=== PATIENT | male | born 1975 | race Caucasian/White ===

== ENCOUNTER 2016-06-26 11:20 | Day surgery (SDC) | payer MEDICARE, MEDICAID ==
[~2016-06-26 11:20] MED LIST: ACETAMINOPHEN 1000MG/100 ML PREMIX IV ONE
[2016-06-26] MEDS ORDERED: HYDROMORPHONE HCL 2 MG/ML VIAL IV ONE (14:00)
[2016-06-26] MEDS ORDERED: BUPIVACAINE 0.25% W/EPI MPF 30ML VIAL IVP ONE (14:00)
[2016-06-26] MEDS ORDERED: HYDROCODONE/APAP 5/325MG TABLET PO ONE (14:00)
[2016-06-26] MEDS ORDERED: ONDANSETRON HCL IV 4 MG/2 ML VIAL IVP ONE (15:34)
[2016-06-26] MEDS ORDERED: KETOROLAC 30 MG/ML VIAL IVP ONE (15:34)
[2016-06-26] MEDS ORDERED: NEOSTIGMINE 1 MG/1 ML,10ML VIAL IV ONE (15:34)
[2016-06-26] MEDS ORDERED: FENTANYL PF 100MCG/2ML VIAL IV ONE (15:34)
[2016-06-26] MEDS ORDERED: MIDAZOLAM HCL 2MG/2ML VIAL IV ONE (15:34)
[2016-06-26] MEDS ORDERED: GLYCOPYRROLATE 0.2 MG/ML ML IV ONE (15:34)
[2016-06-26] MEDS ORDERED: DEXAMETHASONE 4 MG/ML 1ML VIAL IVP ONE (15:34)
[2016-06-26] MEDS ORDERED: SUCCINYLCHOLINE 20 MG/ML 10ML IVP ONE (15:34)
[2016-06-26] MEDS ORDERED: PROPOFOL 10 MG/ML VIAL IV ONE (15:34)
[2016-06-26] MEDS ORDERED: ROCURONIUM BROMIDE 50MG/5ML VIAL IV ONE (15:34)
--- NOTE | 2016-06-27 16:09 | Operative Note ---
DATE OF SURGERY: 06/26/16 PREOPERATIVE DIAGNOSIS: CHRONIC CHOLECYSTITIS. POSTOPERATIVE DIAGNOSIS: CHRONIC CHOLECYSTITIS. OPERATION: LAPAROSCOPIC CHOLECYSTECTOMY. SURGEON: YRN CHASE D.O. INDICATIONS: The patient is a 40-year-old male who presented to the clinic. He had ongoing right subcostal postprandial pain. Ultrasound was done, which did reveal cholelithiasis with a fairly heavy . We did discuss cholecystectomy versus medical management, he desired surgical intervention. The risks include but not limited to; bleeding, infection, ductal injury, possible conversion to open, and postoperative bile leak and he understood this fully. Therefore, consent was signed and questions answered. PROCEDURE: He was taken to the Operating Room and placed in the supine position. General anesthesia was administered per the Anesthesia Department. The patient's abdomen was prepped and draped in the usual sterile fashion. The infraumbilical region was anesthetized with a total of 3 mL of 0.25% Sensorcaine with Epinephrine. A 2 cm infraumbilical incision was made. This was carried down to the anterior rectus fascia. This was incised. Abhishek clamps were placed on the fascial edges and brought up into the wound. Stay sutures of 0 Vicryl were placed. The posterior rectus sheath was identified and incised and the peritoneal cavity was entered bluntly. At this time, a 10 mm blunt Nilda port was placed and adequate pneumoperitoneum was established. Under direct visualization, additional 5 mm epigastric and two 5 mm right subcostal ports were placed. The patient was then rotated into reverse Trendelenburg and rotation to the left. The patient's gallbladder was noted in the subhepatic space. It was lifted cephalad and lateral opening the angle of Calot. It was noted to be very thickened, inflamed, consistent with chronic cholecystitis. At this time, the hepatocystic triangle was thoroughly dissected out. There was no aberrant anatomy. No posterior ductal structures. The cystic duct and cystic artery were clearly identified. Each one was doubly clipped and cut in the standard fashion. The gallbladder was taken off the liver bed with the Braulio harmonic. This was placed in the endo-catch bag and brought out infraumbilically. At this time, the right upper quadrant was rechecked and noted to be hemostatic. No bleeding, no bile leak, and no bowel injury noted. The patient was leveled out. Pneumoperitoneum was released. All ports were removed. The fascia was closed with 0 Vicryl in a [id number] fashion. The skin and all four ports were closed with 4-0 Vicryl. He was taken to the Recovery Room in satisfactory condition. FINDINGS AT THE TIME OF SURGERY: CHRONIC CHOLECYSTITIS. Yrn Chase D.O. Date & Time cc: Dr. Neftaly Hickey JOB NUMBER: [id number] MTDD
== END 2016-06-26 16:09 | disposition home or self-care (01) ==
LOC: SUR 11:20
PROVIDERS: ATTEND Surgery
DX: K80.10 Calculus of gallbladder with chronic cholecystitis without obstruction (principal); Z87.820 Personal history of traumatic brain injury; F41.8 Other specified anxiety disorders
CPT/HCPCS: 47562; 00790; 88304; J1885; J2405; J3010; J1170; J0330; J2710

== ENCOUNTER 2016-12-28 16:28 | Emergency (ER) | payer OTHER, MEDICARE, MEDICAID ==
[2016-12-28] MEDS ORDERED: LORAZEPAM 2 MG/ML VIAL IV ONE (17:37)
[2016-12-28 18:06] LABS: BASO % 0.2 % (0-6); EOS % 1.4 % (0-6); GRAN % 69.8 % (47-80); HEMATOCRIT 46.7 % (42.0-52.0); HEMOGLOBIN 15.3 gm/dl (14.0-18.0); LYMPH % 22.8 % (16-45); MEAN CELL VOLUME 92.5 fl (81-97); MEAN CORPUSCULAR HEMOGLOBIN 30.3 pg (27-33); MEAN CORPUSCULAR HGB CONC 32.8 g/dl (32-36); MEAN PLATELET VOLUME 9.4 fl (7.4-10.4); MONO % 5.8 % (0-9); PLATELET COUNT 347 K/uL (130-400); RED BLOOD COUNT 5.05 M/uL (4.40-5.70); RED CELL DISTRIBUTION WIDTH 13.4 % (11.5-14.5); WHITE BLOOD COUNT W/O DIFF 9.6 K/uL (4.2-12.2)
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
[2016-12-28 18:20] LABS: ALB/GLOB RATIO 1.2 (1.1-1.8); ALBUMIN 4.4 gm/dL (3.5-5.0); ALKALINE PHOSPHATASE 98 U/L (38-126); ALT/SGPT 45 U/L (21-72); ANION GAP 12.3 (7-16); AST/SGOT 24 U/L (17-59); BILIRUBIN,TOTAL 1.13 mg/dL (0.2-1.3); BLOOD UREA NITROGEN 9 mg/dL (9-20); CARBON DIOXIDE 24.7 mmol/L (22-30); CREATININE 0.6 mg/dL (0.66-1.25); EST GLOMERULAR FILTRATION RATE > 60 ml/min; GLUCOSE,RANDOM 93 mg/dL (70-110); LIPASE 70 U/L (23-300); TOTAL PROTEIN 8.1 gm/dL (6.3-8.2)
[2016-12-28] MEDS ORDERED: POLYETHYLENE GLY 17 GM PACKET PO ONE (19:07)
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
--- NOTE | 2016-12-29 08:26 | CT SCAN REPORT ---
EXAM: CT OF THE ABDOMEN AND PELVIS WITHOUT CONTRAST HISTORY: ABDOMINAL PAIN. TECHNIQUE: Sequential axial images were obtained from the diaphragms through the ischiorectal fossa without intravenous or oral contrast administration. FINDINGS: The visualized lung bases appear normal. The liver appears homogeneous. The gallbladder has been surgically removed. The pancreas and spleen appear normal. The adrenal glands and kidneys appear normal. No CT findings suggestive of obstructive uropathy. The urinary bladder appears normal. There is a single dilated air filled loop of small bowel in the left upper quadrant. No evidence of obstruction. There is mild increased stool throughout the colon. The appendix is visualized and appears normal. There is postop surgical change of the lumbar spine. There are compression fracture deformities in the T12 and L3 vertebral bodies. IMPRESSION: MILD INCREASED STOOL THROUGHOUT THE ENTIRE COLON. THE APPENDIX IS VISUALIZED AND APPEARS NORMAL. THERE IS A SINGLE MILDLY DISTENDED AIR FILLED LOOP OF SMALL BOWEL IN THE LEFT UPPER QUADRANT. THE ETIOLOGY OF THIS IS NONSPECIFIC. JOB NUMBER: [id number] MTDD
== END 2016-12-28 19:35 | disposition home or self-care (01) ==
LOC: ER 16:28
DX: K59.09 Other constipation (principal); R10.9 Unspecified abdominal pain; G82.20 Paraplegia, unspecified
CPT/HCPCS: 99284 ×2; 96374; 83690; 85025; 80053; 74176; J2060